=== PATIENT | female | born 1945 | race Two or more races ===

== ENCOUNTER 2021-06-23 14:20 | Outpatient (CLI) | payer OTHER | END 2021-06-23 14:22 | disposition home or self-care (01) | LOC: RAD 14:20 | PROVIDERS: ATTEND Podiatrist Foot Surgery | DX: M20.41 Other hammer toe(s) (acquired), right foot (principal); M20.42 Other hammer toe(s) (acquired), left foot ==

== ENCOUNTER 2021-08-26 09:30 | Outpatient (CLI) | payer OTHER | END 2021-08-26 09:45 | disposition home or self-care (01) | LOC: PPH VACUNA 09:30 | PROVIDERS: ATTEND Emergency Medicine Pediatric Emergency Medicine | DX: Z23 Encounter for immunization (principal) ==

== ENCOUNTER 2022-01-18 13:37 | Outpatient (CLI) | payer OTHER | END 2022-01-18 13:42 | disposition home or self-care (01) | LOC: MAMO-SONO 13:37 | PROVIDERS: ATTEND Specialist | DX: R92.1 Mammographic calcification found on diagnostic imaging of breast (principal) ==

== ENCOUNTER 2022-03-03 15:04 | Outpatient (CLI) | payer OTHER | END 2022-03-03 15:08 | disposition home or self-care (01) | LOC: RAD 15:04 | PROVIDERS: ATTEND Internal Medicine Cardiovascular Disease | DX: M12.9 Arthropathy, unspecified (principal); M46.48 Discitis, unspecified, sacral and sacrococcygeal region ==

== ENCOUNTER 2022-03-17 08:00 | Outpatient (CLI) | payer OTHER | END 2022-03-17 08:30 | disposition home or self-care (01) | LOC: PPH VACUNA 08:00 | PROVIDERS: ATTEND Emergency Medicine Pediatric Emergency Medicine | DX: Z23 Encounter for immunization (principal) ==

== ENCOUNTER 2024-02-09 14:53 | Outpatient (CLI) | payer OTHER | END 2024-02-09 15:03 | disposition home or self-care (01) | LOC: MAMO-SONO 14:53 | PROVIDERS: ATTEND Internal Medicine Cardiovascular Disease | DX: N60.12 Diffuse cystic mastopathy of left breast (principal); N60.11 Diffuse cystic mastopathy of right breast; Z12.31 Encounter for screening mammogram for malignant neoplasm of breast ==